=== PATIENT | male | born 1950 | race Caucasian/White ===

== ENCOUNTER → 2023-08-06 | Outpatient (CLI) | payer MEDICARE ==
[2023-08-06 10:28] LABS: Basophils # (A) 0.04 X 10*3/uL (0.00-0.10); Basophils % (A) 0.7 %; Eosinophils # (A) 0.14 X 10*3/uL (0.04-0.35); Eosinophils % (A) 2.3 %; HGB 14.3 g/dL (13.0-17.0); MCHC 33.3 g/dL (32.0-37.0); MCV 96.2 FL (80.0-97.0); Mean Platelet Volume 10.3 FL (9.5-12.2); Monocytes # (A) 0.57 X 10*3/uL (0.20-1.00); Monocytes % (A) 9.3 %; NRBC Per 100 WBC 0 X 10*3/uL (0.00-0.01); Neutrophils # (A) 3.14 X 10*3/uL (1.80-7.70); Neutrophils % (A) 51.4 %; Platelet Count 175 X 10*3/uL (140-440); RBC 4.47 X 10*6/uL (4.40-5.60); RDW 12.6 % (11.5-14.5); WBC 6.11 X 10*3/uL (4.50-10.00)
[2023-08-06 10:47] LABS: ALT 23 U/L (10-49); AST 23 U/L (14-35); Albumin 4.5 g/dL (3.8-4.9); Albumin/Globulin Ratio 2.25 Ratio (1.60-3.17); Alkaline Phosphatase 62 U/L (41-126); Blood Urea Nitrogen 18.7 mg/dL (9.0-27.0); Calcium 9.4 mg/dL (8.7-10.3); Carbon Dioxide 26.3 mmol/L (21.6-31.8); Chloride 107 mmol/L (96-109); Chol/HDL Ratio 3.09 Ratio; Glucose 104 mg/dL (70-110); LDL Cholesterol,Calculated 96.8 mg/dL (0.0-131.0); Potassium 3.9 mmol/L (3.5-5.5); Sodium 143 mmol/L (135-145); Total Bilirubin 0.7 mg/dL (0.3-1.2); Total Protein 6.5 g/dL (6.2-8.2); VLDL Calculation 11.38 mg/dL (5.00-40.00)
== END ==
LOC: LABWHC1 07:15
PROVIDERS: ATTEND Family Medicine
DX: I10 Essential (primary) hypertension (principal); E78.2 Mixed hyperlipidemia
CPT/HCPCS: 36415; 80053; 80061; 85025

== ENCOUNTER → 2023-12-09 | Outpatient (CLI) | payer MEDICARE ==
--- NOTE | 2023-12-10 08:10 | MR ---
EXAMINATION TYPE: MR brain wo con DATE OF EXAM: 12/09/2023 8:28 AM COMPARISON: MRA head of the same date. CLINICAL INDICATION:Male, 73 years old with history of R51.9 Headache; PHH, TECHNIQUE: Multi planar, multi sequence imaging was performed through the brain. No gadolinium was gi nataly. FINDINGS: The archuleta-white junctions, ventricular system, and cisterns appear unremarkable. Age-appropriate diffu se cerebral parenchymal volume loss. Few foci of high T2/FLAIR signal intensity are seen within the p eriventricular and subcortical white matter. Largest is within the medial left frontal lobe subcortic al white matter measuring up to 5 mm (series 701, image 27). Midline structures show no abnormality. Diffusion-weighted imaging shows no evidence of restricted diffusion. The susceptibility weighted lizeth ges do not reveal any evidence for micro-hemorrhage. The bone marrow signal is within normal limits. Mild mucosal thickening of the inferior left maxillar y and ethmoid sinuses. T2 signal fluid identified within the right petrous apex. The globes are unrem arkable. IMPRESSION: 1. No evidence of intracranial mass or acute/subacute infarct. 2. Nonspecific white matter changes, likely secondary to small vessel ischemic disease. 3. Scattered mild paranasal mucosal sinus disease. 4. Right petrous apex effusion. [facility], , 12/10/2023 8:08 AM
--- NOTE | 2023-12-10 08:13 | MR ---
EXAMINATION TYPE: MR angio head wo con DATE OF EXAM: 12/09/2023 COMPARISON: MR brain of the same date HISTORY: constant headache. TECHNIQUE: Time of flight images focusing on the [place] were performed without contrast. FINDINGS: There is no evidence for focal stenosis, large vessel occlusion, or discrete aneurysm. IMPRESSION: No evidence for focal stenosis, occlusion or aneurysm. [facility], , 12/10/2023 8:11 AM
== END | disposition home or self-care (01) ==
LOC: RADMRIMAIN 07:18
PROVIDERS: ATTEND Family Medicine
CPT/HCPCS: 70544; 70551

== ENCOUNTER → 2023-12-17 | Outpatient (CLI) | payer MEDICARE ==
--- NOTE | 2023-12-18 18:51 | MR ---
EXAMINATION TYPE: MR lumbar spine wo con DATE OF EXAM: 12/17/2023 5:08 PM COMPARISON: None. CLINICAL INDICATION: Male, 73 years old with history of M54.16 RADICULOPATHY LUMBAR REGION, low back pain down into left and right buttocks. TECHNIQUE: Multiplanar, multisequence images of the lumbar spine were acquired. IV Contrast: 0 mL Gadavist (None, if empty) FINDINGS: Cord ends at the T12 L5-S1: No focal disc herniation or significant disc bulge. No spinal canal stenosis. Neural foramen are patent. L4-L5: There is narrowing of this disc height. Mild disc bulge is present with anterior thecal sac co ntact. Facet hypertrophy has posterior lateral thecal sac compression greater on the left. Ligamentum flavum laxity is present. L3-L4: There is loss of disc height at this level. Facet hypertrophy is present with posterior latera l thecal sac compression. Some lateral canal narrowing is present. Mild spinal canal stenosis may be present. Moderate foraminal stenosis is present bilaterally. L2-L3: Broad-based disc bulge is present with anterior thecal sac flattening. Facet hypertrophy and l igamentum flavum laxity is present with moderate posterior lateral thecal sac compression. AP spinal canal narrowing is present. Spinal canal stenosis appears to be present. Severe right and moderate le ft foraminal stenosis is present L1-L2: Mild disc bulge is present with anterior thecal sac contact. No AP spinal canal stenosis is pr esent. Facet hypertrophy is present. T12-L1: Minimal disc bulge is present with anterior thecal sac contact. Facet hypertrophy is present. No spinal canal stenosis or neural foraminal stenosis present. IMPRESSION: 1. Spinal canal stenosis secondary to broad-based disc bulge and facet hypertrophy and ligamentum fla vum laxity L2-3. 2. Some milder spinal canal stenosis at L3-4 is present from disc bulging and facet hypertrophy. Late ral canal narrowing is present. 3. Severe right and moderate left foraminal stenosis at L2-3 with moderate bilateral foraminal stenos is at L3-4 [facility], , 12/18/2023 6:49 PM
== END | disposition home or self-care (01) ==
LOC: RADMRIMAIN 16:29
PROVIDERS: ATTEND Family Medicine
DX: M51.16 Intervertebral disc disorders with radiculopathy, lumbar region (principal); M48.061 Spinal stenosis, lumbar region without neurogenic claudication
CPT/HCPCS: 72148

== ENCOUNTER → 2024-07-31 | Outpatient (CLI) | payer MEDICARE | END | disposition home or self-care (01) | LOC: LABWHC1 11:16 | PROVIDERS: ATTEND Urology | DX: R97.20 Elevated prostate specific antigen [PSA] (principal) | CPT/HCPCS: 36415; 84153 ==